=== PATIENT | male | born 1935 | race Caucasian/White ===

== ENCOUNTER 2021-05-26 09:25 | Outpatient (CLI) | payer MEDICARE, BC | END 2021-05-26 09:26 | disposition home or self-care (01) | LOC: CSHWCC 09:25 | PROVIDERS: ATTEND Nurse Practitioner Family | DX: S81.801D Unspecified open wound, right lower leg, subsequent encounter (principal); S81.802D Unspecified open wound, left lower leg, subsequent encounter; E11.621 Type 2 diabetes mellitus with foot ulcer; L97.412 Non-pressure chronic ulcer of right heel and midfoot with fat layer exposed; E11.40 Type 2 diabetes mellitus with diabetic neuropathy, unspecified; E78.2 Mixed hyperlipidemia; I10 Essential (primary) hypertension; I25.84 Coronary atherosclerosis due to calcified coronary lesion; I87.2 Venous insufficiency (chronic) (peripheral); R60.0 Localized edema; Z91.81 History of falling; M19.071 Primary osteoarthritis, right ankle and foot | CPT/HCPCS: 11042; 80053; 83036; 84134; 85027; 86140; 97139; G0463; 36415; 99204 ==

== ENCOUNTER 2021-06-09 09:08 | Outpatient (CLI) | payer MEDICARE, BC | END 2021-06-09 09:09 | disposition home or self-care (01) | LOC: CSHWCC 09:08 | PROVIDERS: ATTEND Nurse Practitioner Family | DX: I87.2 Venous insufficiency (chronic) (peripheral) (principal); E11.621 Type 2 diabetes mellitus with foot ulcer; L97.412 Non-pressure chronic ulcer of right heel and midfoot with fat layer exposed; S81.801D Unspecified open wound, right lower leg, subsequent encounter; S81.802D Unspecified open wound, left lower leg, subsequent encounter; R60.0 Localized edema; E11.40 Type 2 diabetes mellitus with diabetic neuropathy, unspecified; E11.65 Type 2 diabetes mellitus with hyperglycemia; E78.2 Mixed hyperlipidemia; I25.84 Coronary atherosclerosis due to calcified coronary lesion; I25.10 Atherosclerotic heart disease of native coronary artery without angina pectoris; I10 Essential (primary) hypertension; Z91.81 History of falling | CPT/HCPCS: 11042; 99213; G0463 ==

== ENCOUNTER 2021-06-30 10:09 | Outpatient (CLI) | payer MEDICARE, BC | END 2021-06-30 10:10 | disposition home or self-care (01) | LOC: CSHWCC 10:09 | PROVIDERS: ATTEND Nurse Practitioner Family | DX: I87.2 Venous insufficiency (chronic) (peripheral) (principal); E11.621 Type 2 diabetes mellitus with foot ulcer; E11.40 Type 2 diabetes mellitus with diabetic neuropathy, unspecified; E11.65 Type 2 diabetes mellitus with hyperglycemia; L97.412 Non-pressure chronic ulcer of right heel and midfoot with fat layer exposed; E78.2 Mixed hyperlipidemia; I10 Essential (primary) hypertension; I25.84 Coronary atherosclerosis due to calcified coronary lesion; R60.0 Localized edema; R79.82 Elevated C-reactive protein (CRP); Z91.81 History of falling | CPT/HCPCS: 11042; 99213; G0463 ==

== ENCOUNTER 2021-08-27 09:25 | Outpatient (CLI) | payer MEDICARE, BC | END 2021-08-27 09:26 | disposition home or self-care (01) | LOC: CSHWCC 09:25 | PROVIDERS: ATTEND Nurse Practitioner Family | DX: I87.2 Venous insufficiency (chronic) (peripheral) (principal); E11.621 Type 2 diabetes mellitus with foot ulcer; L97.412 Non-pressure chronic ulcer of right heel and midfoot with fat layer exposed; E11.40 Type 2 diabetes mellitus with diabetic neuropathy, unspecified; E11.65 Type 2 diabetes mellitus with hyperglycemia; E78.2 Mixed hyperlipidemia; I25.84 Coronary atherosclerosis due to calcified coronary lesion; I25.10 Atherosclerotic heart disease of native coronary artery without angina pectoris; R60.0 Localized edema; R79.82 Elevated C-reactive protein (CRP); Z91.81 History of falling | CPT/HCPCS: 11042; 97139; G0463; 99213 ==

== ENCOUNTER 2021-09-29 11:15 | Outpatient (CLI) | payer MEDICARE, BC | END 2021-09-29 11:16 | disposition home or self-care (01) | LOC: CSHWCC 11:15 | PROVIDERS: ATTEND Nurse Practitioner Family | DX: I87.2 Venous insufficiency (chronic) (peripheral) (principal); E11.621 Type 2 diabetes mellitus with foot ulcer; E11.40 Type 2 diabetes mellitus with diabetic neuropathy, unspecified; E11.65 Type 2 diabetes mellitus with hyperglycemia; L97.412 Non-pressure chronic ulcer of right heel and midfoot with fat layer exposed; E78.2 Mixed hyperlipidemia; I10 Essential (primary) hypertension; I25.84 Coronary atherosclerosis due to calcified coronary lesion; R60.0 Localized edema; R79.82 Elevated C-reactive protein (CRP); Z91.81 History of falling | CPT/HCPCS: 15275; 99213; G0463; Q4133 ==

== ENCOUNTER 2021-10-07 09:57 | Outpatient (CLI) | payer MEDICARE, BC | END 2021-10-07 09:58 | disposition home or self-care (01) | LOC: CSHWCC 09:57 | PROVIDERS: ATTEND Nurse Practitioner Family | DX: E11.621 Type 2 diabetes mellitus with foot ulcer (principal); L97.412 Non-pressure chronic ulcer of right heel and midfoot with fat layer exposed; E78.2 Mixed hyperlipidemia; I10 Essential (primary) hypertension; I25.84 Coronary atherosclerosis due to calcified coronary lesion; I87.2 Venous insufficiency (chronic) (peripheral); R60.0 Localized edema; R79.82 Elevated C-reactive protein (CRP) | CPT/HCPCS: 15275; 99213; G0463; Q4133 ==

== ENCOUNTER 2021-10-21 14:09 | Outpatient (CLI) | payer MEDICARE, BC | END 2021-10-21 14:10 | disposition home or self-care (01) | LOC: CSHWCC 14:09 | PROVIDERS: ATTEND Nurse Practitioner Family | DX: I87.2 Venous insufficiency (chronic) (peripheral) (principal); E11.621 Type 2 diabetes mellitus with foot ulcer; L97.412 Non-pressure chronic ulcer of right heel and midfoot with fat layer exposed; E11.65 Type 2 diabetes mellitus with hyperglycemia; E11.40 Type 2 diabetes mellitus with diabetic neuropathy, unspecified; E78.2 Mixed hyperlipidemia; I25.10 Atherosclerotic heart disease of native coronary artery without angina pectoris; I25.84 Coronary atherosclerosis due to calcified coronary lesion; R60.0 Localized edema; R79.82 Elevated C-reactive protein (CRP); Z91.81 History of falling ==

== ENCOUNTER 2021-11-04 15:02 | Outpatient (CLI) | payer MEDICARE, BC | END 2021-11-04 15:03 | disposition home or self-care (01) | LOC: CSHWCC 15:02 | PROVIDERS: ATTEND Nurse Practitioner Family | DX: I87.2 Venous insufficiency (chronic) (peripheral) (principal); S80.821D Blister (nonthermal), right lower leg, subsequent encounter; S80.822D Blister (nonthermal), left lower leg, subsequent encounter; E11.621 Type 2 diabetes mellitus with foot ulcer; L97.412 Non-pressure chronic ulcer of right heel and midfoot with fat layer exposed; E11.40 Type 2 diabetes mellitus with diabetic neuropathy, unspecified; E11.65 Type 2 diabetes mellitus with hyperglycemia; E78.2 Mixed hyperlipidemia; I10 Essential (primary) hypertension; I25.84 Coronary atherosclerosis due to calcified coronary lesion; R60.0 Localized edema; R79.82 Elevated C-reactive protein (CRP); Z91.81 History of falling | CPT/HCPCS: 11042; 97139 ×2; G0463 ×2; 99213 ==

== ENCOUNTER 2021-11-18 14:59 | Outpatient (CLI) | payer MEDICARE, BC | END 2021-11-18 15:00 | disposition home or self-care (01) | LOC: CSHWCC 14:59 | PROVIDERS: ATTEND Nurse Practitioner Family | DX: S80.821D Blister (nonthermal), right lower leg, subsequent encounter (principal); S80.822D Blister (nonthermal), left lower leg, subsequent encounter; E11.621 Type 2 diabetes mellitus with foot ulcer; L97.412 Non-pressure chronic ulcer of right heel and midfoot with fat layer exposed; E11.40 Type 2 diabetes mellitus with diabetic neuropathy, unspecified; E11.65 Type 2 diabetes mellitus with hyperglycemia; E78.2 Mixed hyperlipidemia; I10 Essential (primary) hypertension; I25.84 Coronary atherosclerosis due to calcified coronary lesion; I87.2 Venous insufficiency (chronic) (peripheral); R60.0 Localized edema; R79.82 Elevated C-reactive protein (CRP); Z91.81 History of falling ==

== ENCOUNTER 2021-12-02 14:40 | Outpatient (CLI) | payer MEDICARE, BC | END 2021-12-02 14:41 | disposition home or self-care (01) | LOC: CSHWCC 14:40 | PROVIDERS: ATTEND Nurse Practitioner Family | DX: I87.2 Venous insufficiency (chronic) (peripheral) (principal); E11.621 Type 2 diabetes mellitus with foot ulcer; L97.412 Non-pressure chronic ulcer of right heel and midfoot with fat layer exposed; S80.821D Blister (nonthermal), right lower leg, subsequent encounter; S80.822D Blister (nonthermal), left lower leg, subsequent encounter; E11.40 Type 2 diabetes mellitus with diabetic neuropathy, unspecified; E11.65 Type 2 diabetes mellitus with hyperglycemia; I25.84 Coronary atherosclerosis due to calcified coronary lesion; I25.10 Atherosclerotic heart disease of native coronary artery without angina pectoris; R60.0 Localized edema; E78.2 Mixed hyperlipidemia; R79.82 Elevated C-reactive protein (CRP); Z91.81 History of falling ==

== ENCOUNTER 2021-12-16 14:58 | Outpatient (CLI) | payer MEDICARE, BC | END 2021-12-16 14:59 | disposition home or self-care (01) | LOC: CSHWCC 14:58 | PROVIDERS: ATTEND Nurse Practitioner Family | DX: L97.519 Non-pressure chronic ulcer of other part of right foot with unspecified severity (principal); R60.0 Localized edema | CPT/HCPCS: 97139; G0463; 99213 ==

== ENCOUNTER 2022-03-16 13:58 | Outpatient (CLI) | payer MEDICARE, BC | END 2022-03-16 13:59 | disposition home or self-care (01) | LOC: CSHWCC 13:58 | PROVIDERS: ATTEND Nurse Practitioner Family | DX: I87.311 Chronic venous hypertension (idiopathic) with ulcer of right lower extremity (principal); L97.811 Non-pressure chronic ulcer of other part of right lower leg limited to breakdown of skin; L97.412 Non-pressure chronic ulcer of right heel and midfoot with fat layer exposed ==

== ENCOUNTER 2022-03-30 14:31 | Outpatient (CLI) | payer MEDICARE, BC | END 2022-03-30 14:32 | disposition home or self-care (01) | LOC: CSHWCC 14:31 | PROVIDERS: ATTEND Nurse Practitioner Family | DX: L97.412 Non-pressure chronic ulcer of right heel and midfoot with fat layer exposed (principal); R60.0 Localized edema | CPT/HCPCS: 11042; 73630; 85025; 86140; 97139; G0463; 36415; 99213 ==

== ENCOUNTER 2022-03-30 16:17 | Outpatient (CLI) | payer MEDICARE, BC | END 2022-03-30 16:18 | disposition home or self-care (01) | LOC: CSHRAD 16:17 | PROVIDERS: ATTEND Nurse Practitioner Family | DX: L97.412 Non-pressure chronic ulcer of right heel and midfoot with fat layer exposed (principal) ==

== ENCOUNTER 2022-04-13 14:30 | Outpatient (CLI) | payer MEDICARE, BC | END 2022-04-13 14:31 | disposition home or self-care (01) | LOC: CSHWCC 14:30 | PROVIDERS: ATTEND Nurse Practitioner Family | DX: I87.311 Chronic venous hypertension (idiopathic) with ulcer of right lower extremity (principal); L97.412 Non-pressure chronic ulcer of right heel and midfoot with fat layer exposed; L97.819 Non-pressure chronic ulcer of other part of right lower leg with unspecified severity; R60.0 Localized edema; S81.002D Unspecified open wound, left knee, subsequent encounter | CPT/HCPCS: 99213; G0463 ==

== ENCOUNTER 2022-04-20 14:09 | Outpatient (CLI) | payer MEDICARE, BC | END 2022-04-20 14:10 | disposition home or self-care (01) | LOC: CSHWCC 14:09 | PROVIDERS: ATTEND Nurse Practitioner Family | DX: S81.002D Unspecified open wound, left knee, subsequent encounter (principal); I87.311 Chronic venous hypertension (idiopathic) with ulcer of right lower extremity; L97.811 Non-pressure chronic ulcer of other part of right lower leg limited to breakdown of skin; L97.412 Non-pressure chronic ulcer of right heel and midfoot with fat layer exposed; R60.0 Localized edema | CPT/HCPCS: 97139; G0463; 99213 ==

== ENCOUNTER 2022-05-12 12:40 | Outpatient (CLI) | payer MEDICARE, BC ==
[~2022-05-12 12:40] MED LIST: Iopamidol 370 76% 100 ML VIAL ONE
== END 2022-05-12 12:41 | disposition home or self-care (01) ==
LOC: CSHSPEC 12:40
PROVIDERS: ATTEND Nurse Practitioner Family
DX: E11.621 Type 2 diabetes mellitus with foot ulcer (principal); L97.412 Non-pressure chronic ulcer of right heel and midfoot with fat layer exposed; E11.69 Type 2 diabetes mellitus with other specified complication; M86.9 Osteomyelitis, unspecified; L02.611 Cutaneous abscess of right foot
CPT/HCPCS: 82565; Q9967

== ENCOUNTER 2022-09-14 09:21 | Outpatient (CLI) | payer MEDICARE, BC | END 2022-09-14 09:22 | disposition home or self-care (01) | LOC: CSHWCC 09:21 | PROVIDERS: ATTEND Nurse Practitioner Family | DX: E11.621 Type 2 diabetes mellitus with foot ulcer (principal); L97.412 Non-pressure chronic ulcer of right heel and midfoot with fat layer exposed; L97.418 Non-pressure chronic ulcer of right heel and midfoot with other specified severity; R60.0 Localized edema | CPT/HCPCS: 11042; 87070; 87077; 87186; 87205; 97139; G0463; 99213 ==